=== PATIENT | female | born 1955 | race Caucasian/White ===

== ENCOUNTER 2021-06-11 09:51 | Outpatient (RCR) | payer MEDICARE, SELFPAY ==
[2021-06-11] MEDS: ACETAMINOPHEN 325 MG TABLET 650 MG PO (11:57)
[2021-06-11] MEDS: diphenhydrAMINE HCl CAP 25 MG CAPSULE PO (11:58)
[2021-06-11] MEDS: FAMOTIDINE 20 MG TABLET PO (11:58)
[2021-06-11 12:15] VITALS: BP 123/61; PULSE 75; RESP 20; TEMP 36.8; O2SAT 98
[2021-06-11 13:25] VITALS: BP 126/62
== END 2021-06-11 16:00 ==
LOC: AMCINF 09:51
PROVIDERS: PCP Nurse Practitioner Family; Visit Provider Internal Medicine Hematology & Oncology
DX: U07.1 COVID-19 (principal); I10 Essential (primary) hypertension
CPT/HCPCS: A9270; M0243